=== PATIENT | female | born 1990 | race African-American/Black ===

== ENCOUNTER 2018-01-02 15:34 | Emergency (ER) | payer SELFPAY ==
[2018-01-02 15:46] VITALS: BMI 37.9
[2018-01-02] MEDS ORDERED: SODIUM CHLORIDE 1,000 ML IV STA ×2 (16:08→17:44)
--- NOTE | 2018-01-02 16:27 | PDOC ---
History of Present Illness - General Chief Complaint: Blood Sugar Problem Stated Complaint: G.HOME, HIGH BL SUGAR ABDOMINAL AND BACK PAIN Time Seen by Provider: 01/02/18 15:55 History Source: Care Provider Exam Limitations: Clinical Condition - History of Present Illness Initial Comments: 01/02/18 16:23 Patient is 27F with history of DM2, autism, and multiple other psychological issues is coming from [facility] [place] with complaint of high blood sugar and altered mental status. Paperwork from the MD at the facility states that she's been lethargic for the past few days complaining of back and abdominal pain. Blood sugar was reported at 547 with trace ketones. Patient is on quetiapine, clozapine, and aripraprazole. Patient follows basic commands, but does not complain of anything verbally. Patient is verbal at baseline. Past History - Past Medical History Allergies/Adverse Reactions: Allergies Allergy/AdvReac Type Severity Reaction Status Date / Time No Known Allergies Allergy Verified 01/02/18 15:40 Home Medications: Ambulatory Orders Chlorpromazine [Thorazine -] 50 mg PO BID 03/31/15 Famotidine [Pepcid] 40 mg PO DAILY 03/31/15 Imipramine HCl [Tofranil -] 50 mg PO HS 03/31/15 Magnesium Hydrox 2400MG/30Ml [Milk Of Magnesia] 400 mg PO DAILY 03/31/15 Metformin HCl 500 mg PO TID 03/31/15 Multivitamins [Tab-A-Vit -] 1 tab PO DAILY 03/31/15 Quetiapine Fumarate [Seroquel] 300 mg PO QID 03/31/15 Aripiprazole 20 mg PO BID 09/07/15 Docusate Sodium 100 mg PO TID 09/07/15 Lorazepam 2 mg PO BID 09/07/15 Anemia: Yes COPD: No Diabetes: Yes (TYPE 2) Hypercholesterolemia: Yes (TRIGLYCERIDE) Psychiatric Problems: No (autism,oppositional defiant disorder,mod M.R) 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) - Immunization History Immunization Up to Date: Yes - Suicide/Smoking/Psychosocial Hx Smoking History: Never smoked Have you smoked in the past 12 months: No Information on smoking cessation initiated: No Hx Alcohol Use: No Drug/Substance Use Hx: No Substance Use Type: None Review of Systems - Review of Systems Able to Perform ROS?: No (2/2 clinical condition) *Physical Exam - Vital Signs Last Vital Signs Temp Pulse Resp BP Pulse Ox 99.6 F 119 H 22 123/72 100 01/02/18 15:40 01/02/18 15:40 01/02/18 15:40 01/02/18 15:40 01/02/18 15:40 - Physical Exam Comments: 01/02/18 16:28 GENERAL: Awake, alert, non-verbal HEAD: No signs of trauma, normocephalic, atraumatic EYES: PERRLA, EOMI, sclera anicteric, conjunctiva clear ENT: Auricles normal inspection, hearing grossly normal, nares patent, oropharynx clear without exudates. Dry mucosa NECK: Normal ROM, supple, no lymphadenopathy, JVD, or masses LUNGS: Tachypnea, clear to auscultation bilaterally HEART: Regular rate and rhythm, normal S1 and S2, no murmurs, rubs or gallops, peripheral pulses normal and equal bilaterally. ABDOMEN: Soft, nontender, normoactive bowel sounds. No guarding, no rebound. No masses EXTREMITIES: Normal inspection, Normal range of motion, no edema. No clubbing or cyanosis. NEUROLOGICAL: Cranial nerves II through XII grossly intact. Normal speech, normal gait, no focal sensorimotor deficits SKIN: Warm, Dry, normal turgor, no rashes or lesions noted. ED Treatment Course - LABORATORY CBC & Chemistry Diagram: 01/02/18 16:45 01/02/18 16:45 - RADIOLOGY Radiology Studies Ordered: Category Date Time Status ABDOMEN & PELVIS CT WITH CONTR [CT] Stat CT Scan 01/02/18 16:[address] WITHOUT CONTRAST [CT] Stat CT Scan 01/02/18 16:09 Ordered CXRPORT [CHEST X-RAY PORTABLE*] [RAD] Stat Radiology 01/02/18 16:11 Ordered Medical Decision Making - Medical Decision Making 01/02/18 16:31 Patient is a 27F with history of DM2, multiple psych issues here today with AMS and abdominal pain. Vital signs notable for tachycardia, tachypnea, and oral temp of 99.8. Concerned patient is febrile, will do rectal temp. DDx includes, but is not limited to: DKA/HHS, UTI, PNA, appendicitis. Fingerstick glucose is 160. Broad workup initiated due to patient's inability to volunteer information , abnormal vital signs, and concern for DKA/HHS. 01/02/18 17:37 Rectal temp shows no fever. EKG shows sinus tachycardia with rate of 107. No st elevations/depressions. No significant t-wave abnormalities. Normal KS/QRS/QTc intervals. 01/02/18 17:41 Laboratory Tests 01/02/18 01/02/18 01/02/18 16:36 16:45 16:45 WBC 7.2 Hgb 11.4 Plt Count 246 INR 1.02 VBG pH Mixed VBG HCO3 Creatinine Creat Clearance w eGFR Random Glucose Troponin I Ur Leukocyte Esterase Urine WBC (Auto) Acetone, Qual Negative L 01/02/18 01/02/18 01/02/18 16:45 16:45 16:45 WBC Hgb Plt Count INR VBG pH 7.35 Mixed VBG HCO3 25.2 H Creatinine 0.8 Creat Clearance w eGFR > 60 Random Glucose 146 H Troponin I < 0.02 Ur Leukocyte Esterase 3+ H Urine WBC (Auto) 66 Acetone, Qual CBC normal. CMP reassuring. INR normal. Glucose only 146, no signs of acidosis on CMP. VBG was initially reported as 7.30 pH orally, 6.30 pH in computer. Patient was given ceftriaxone in anticipation of DKA secondary to UTI. Corrected vbg lab value shows no acidosis, pH of 7.35. Reassuring labs otherwise. Will do CT abd/pelvis and CT head still given patient's inability to advocate for self. Patient has good care at facility and would likely be able to take antibiotics PO. No CVA tenderness on my exam. Patient is still tachycardic, will give additional liter. Pending CXR/CT studies. 01/02/18 18:05 CXR shows apparent large bowel herniation through diaphragm on right side, may be artifact. CT abd/pelvis and CT head pending. Signed out to Dr Hart, pending CT scan results. 01/02/18 18:29 *DC/Admit/Observation/Transfer Diagnosis at time of Disposition: UTI (urinary tract infection) - Discharge Dispostion Condition at time of disposition: Stable - Referrals - Patient Instructions - Post Discharge Activity
--- NOTE | 2018-01-02 16:48 | PDOC ---
Attending Attestation - Resident Resident Name: Colin Verdugo - ED Attending Attestation I have performed the following: I have examined & evaluated the patient, The case was reviewed & discussed with the resident, I agree w/resident's findings & plan - HPI HPI: 01/02/18 16:43 27y/o F from [facility] with h/o autism, MDD, DM2 presents with increasing malaise, hyperglycemia over 1-2 days. no vomiting/diarrhea, no cough noted. c/o low back/abd pain, also mild headache. currently lying in stretcher very awake, resistant to some level of care, following some commands. - Physicial Exam PE: 01/02/18 16:46 rectal temp 99.8, tachy 120, o2 sat 100% alert, baseline mental delay, not warm to touch, speaking clearly and in no respiratory distress perrl, eomi. neck supple heart regular tachy, lungs clear moving all extremities, no deformity no rash other than two superficial areas of skin erosion around the perineum, stage 1 no edema - Critical Care Time Total Critical Care Time: 35 Critical Care Statement: The care of this patient involved high complexity decision making to prevent further life threatening deterioration of the patient 's condition and/or to evaluate & treat vital organ system(s) failure or risk of failure. - Medical Decision Making 01/02/18 16:48 27y/o F from [facility] with malaise, hyperglycemia, and c/o low back/abd pain. ? infectious (UTI, colitis) and/or metabolic, r/o dka. low suspicion for software design engineer involvement or primary cardiac process. sepsis protocol initiated given SIRS criteria, though no fever check DKA labs start IVF, ekg cxr, ct head, ctap reassess
[2018-01-02 16:56] LABS: BASO % 0.2 % (0-2.0); EOS % 1.3 % (0-4.5); HEMATOCRIT 34.9 % (32.4-45.2); HEMOGLOBIN 11.4 GM/dL (10.7-15.3); LYMPH % 16.5 % (8-40); MCH 27.9 pg (25.7-33.7); MCHC 32.7 g/dl (32.0-36.0); MEAN CELL VOLUME 85.2 fl (80-96); MEAN PLT VOLUME 6.5 fl (7.5-11.1); MONO % 10.9 % (3.8-10.2); NEUT % 71.1 % (42.8-82.8); PLATELET COUNT 246 K/MM3 (134-434); RDW 14.3 % (11.6-15.6); WHITE BLOOD COUNT 7.2 K/mm3 (4.0-10.0)
[2018-01-02 16:58] LABS: URINE APPEARANCE SLCLOUDY; URINE BILIRUBIN NEGATIVE (<2.0 mg/dL); URINE COLOR YELLOW; URINE GLUCOSE (UA) NEGATIVE (NEGATIVE); URINE KETONE NEGATIVE (NEGATIVE); URINE NITRITE NEGATIVE (NEGATIVE); URINE PROTEIN NEGATIVE (NEGATIVE); URINE UROBILINOGEN NEGATIVE mg/dL (0.2-1.0); VENOUS PC02 46.4 mmHg (38-52); VENOUS PO2 26.2 mmHg (28-48)
[2018-01-02 17:01] LABS: EPI CELLS RARE /HPF (FEW); URINE LEUK ESTERASE 3+ (NEGATIVE); URINE MUCUS RARE
[2018-01-02 17:15] LABS: VENOUS PH 7.35 (7.32-7.42)
[2018-01-02] MEDS ORDERED: CEFTRIAXONE 1,000 MG in DEXTROSE 5%-WATER - 50 ML IVPB ONE (17:19)
[2018-01-02 17:20] LABS: INR 1.02 (0.82-1.09); PROTHROMBIN TIME (PATIENT) 11.5 SEC (9.7-13.0); URINE AMPHETAMINES NEGATIVE ng/ml (CUTOFF=500); URINE BARBITURATES NEGATIVE ng/ml (CUTOFF=200)
[2018-01-02 17:21] LABS: COCAINE, UR NEGATIVE ng/ml (CUTOFF=300); METHADONE, UR NEGATIVE ng/ml (CUTOFF=300); OPIATES, URI NEGATIVE ng/ml (CUTOFF=300); PHENCYCLIDINE,URINE NEGATIVE ng/ml (CUTOFF=25); URINE BENZODIAZEPINES NEGATIVE ng/ml (CUTOFF=200)
[2018-01-02 17:23] VITALS: BP 105/76; PULSE 115; TEMP 99.8
[2018-01-02] MEDS ORDERED: CEFTRIAXONE 1 GM/50 ML BAG ONE (17:25)
[2018-01-02 17:35] LABS: ALBUMIN 3.6 g/dl (3.4-5.0); ANION GAP 8 (8-16); BILIRUBIN,TOTAL 0.3 mg/dL (0.2-1.0); BLOOD UREA NITROGEN 5 mg/dL (7-18); CALCIUM 8.4 mg/dL (8.5-10.1); CHLORIDE 104 mmol/L (98-107); CO2 26 mmol/L (21-32); CREATININE 0.8 mg/dL (0.55-1.02); GLUCOSE,RANDOM 146 mg/dL (74-106); POTASSIUM 4.1 mmol/L (3.5-5.1); SGOT/AST 16 U/L (15-37); SGPT/ALT 22 U/L (12-78); SODIUM 138 mmol/L (136-145); TOT PROT 7.4 g/dl (6.4-8.2)
[2018-01-02 17:37] LABS: ALK PHOS 96 U/L (45-117)
--- NOTE | 2018-01-02 19:54 | PDOC ---
*Physical Exam - Vital Signs Last Vital Signs Temp Pulse Resp BP Pulse Ox 99.8 F H 115 H 22 105/76 97 01/02/18 16:50 01/02/18 16:50 01/02/18 16:50 01/02/18 16:50 01/02/18 16:50 - Physical Exam Comments: 01/02/18 19:55 General Appearance: Nourished. No Apparent Distress HEENT: No Pharyngeal Erythema, Tonsillar Exudate, Tonsillar Erythema Neck: No Cervical Lymphadenopathy Respiratory/Chest: Lungs Clear, Normal Breath Sounds. No Crackles, Rales, Rhonchi, Wheezing Cardiovascular: Regular Rhythm, Regular Rate. No Murmur, Gallops, Rubs Gastrointestinal/Abdominal: Normal Bowel Sounds, Soft. No Guarding, Rebound, Tenderness Musculoskeletal: No CVA Tenderness Extremity: Normal Capillary Refill Integumentary: Normal Color, Dry, Warm ED Treatment Course - LABORATORY CBC & Chemistry Diagram: 01/02/18 16:45 01/02/18 16:45 - ADDITIONAL ORDERS Additional order review: Laboratory Results 01/02/18 01/02/18 01/02/18 16:45 16:45 16:45 PT with INR INR VBG pH 7.35 POC VBG pCO2 46.4 POC VBG pO2 26.2 L Mixed VBG HCO3 25.2 H Sodium Potassium Chloride Carbon Dioxide Anion Gap BUN Creatinine Creat Clearance w eGFR POC Glucometer Random Glucose Calcium Total Bilirubin AST ALT Alkaline Phosphatase Creatine Kinase Troponin I Total Protein Albumin Serum , Qual Negative Urine Color Urine Appearance Urine pH Ur Specific [place] Urine Protein Urine Glucose (UA) Urine Ketones Urine Blood Urine Nitrite Urine Bilirubin Urine Urobilinogen Ur Leukocyte Esterase Urine WBC (Auto) Urine RBC (Auto) Ur Epithelial Cells Urine Mucus Opiates Screen Negative Methadone Screen Negative Barbiturate Screen Negative Phencyclidine Screen Negative Ur Amphetamines Screen Negative MDMA (Ecstasy) Screen Negative Benzodiazepines Screen Negative Cocaine Screen Negative U Marijuana (THC) Screen Negative Acetone, Qual 01/02/18 01/02/18 01/02/18 16:45 16:45 16:45 PT with INR 11.50 INR 1.02 VBG pH POC VBG pCO2 POC VBG pO2 Mixed VBG HCO3 Sodium 138 Potassium 4.1 Chloride 104 Carbon Dioxide 26 Anion Gap 8 BUN 5 L Creatinine 0.8 Creat Clearance w eGFR > 60 POC Glucometer Random Glucose 146 H Calcium 8.4 L Total Bilirubin 0.3 AST 16 ALT 22 Alkaline Phosphatase 96 Creatine Kinase 57 Troponin I < 0.02 Total Protein 7.4 Albumin 3.6 Serum , Qual Urine Color Yellow Urine Appearance Slcloudy Urine pH 5.0 Ur Specific [place] 1.015 Urine Protein Negative Urine Glucose (UA) Negative Urine Ketones Negative Urine Blood Negative Urine Nitrite Negative Urine Bilirubin Negative Urine Urobilinogen Negative Ur Leukocyte Esterase 3+ H Urine WBC (Auto) 66 Urine RBC (Auto) 2 Ur Epithelial Cells Rare Urine Mucus Rare Opiates Screen Methadone Screen Barbiturate Screen Phencyclidine Screen Ur Amphetamines Screen MDMA (Ecstasy) Screen Benzodiazepines Screen Cocaine Screen U Marijuana (THC) Screen Acetone, Qual 01/02/18 01/02/18 16:36 16:21 PT with INR INR VBG pH POC VBG pCO2 POC VBG pO2 Mixed VBG HCO3 Sodium Potassium Chloride Carbon Dioxide Anion Gap BUN Creatinine Creat Clearance w eGFR POC Glucometer [id number] Random Glucose Calcium Total Bilirubin AST ALT Alkaline Phosphatase Creatine Kinase Troponin I Total Protein Albumin Serum , Qual Urine Color Urine Appearance Urine pH Ur Specific [place] Urine Protein Urine Glucose (UA) Urine Ketones Urine Blood Urine Nitrite Urine Bilirubin Urine Urobilinogen Ur Leukocyte Esterase Urine WBC (Auto) Urine RBC (Auto) Ur Epithelial Cells Urine Mucus Opiates Screen Methadone Screen Barbiturate Screen Phencyclidine Screen Ur Amphetamines Screen MDMA (Ecstasy) Screen Benzodiazepines Screen Cocaine Screen U Marijuana (THC) Screen Acetone, Qual Negative L 01/02/18 01/02/18 16:45 16:21 RBC 4.10 MCV 85.2 MCHC 32.7 RDW 14.3 MPV 6.5 L Neutrophils % 71.1 Lymphocytes % 16.5 Monocytes % 10.9 H Eosinophils % 1.3 Basophils % 0.2 POC Glucometer [phone] - Medications Given in the ED: ED Medications Discontinued Medications Generic Name Dose Route Start Last Admin Trade Name Freq PRN Reason Stop Dose Admin Sodium Chloride 1,000 mls @ 1,000 mls/hr 01/02/18 16:08 01/02/18 16:10 Normal Saline - IV 01/02/18 17:07 1,000 mls/hr .Q1H STA Administration Ceftriaxone Sodium 1,000 mg/ 50 mls @ 100 mls/hr 01/02/18 17:19 05/26/18 17: 20 Dextrose IVPB 01/02/18 17:48 100 mls/hr ONCE ONE Administration Sodium Chloride 1,000 mls @ 1,000 mls/hr 01/02/18 17:44 01/02/18 17:45 Normal Saline - IV 01/02/18 18:43 1,000 mls/hr ASDIR STA Administration Progress Note - Progress Note Progress Note: The patient is a 27 year old female who presents for evaluation of behavioral disturbance. Patient's UA demonstrates an UTI and has received ceftriaxone. The patient is pending a CT head and abdomen pelvis. Likely discharge home should imaging be negative. Medical Decision Making - Medical Decision Making 01/02/18 20:17 CT head and abdomen/pelvis were unremarkable as preliminarily read by our can conveyor feeder radiologist. We are comfortable discharging the patient home at this time. We discussed the case with the receiving physician at the patient's nursing home facility who is agreeable with our plan. *DC/Admit/Observation/Transfer Diagnosis at time of Disposition: UTI (urinary tract infection) Qualifiers: Urinary tract infection type: site unspecified Hematuria presence: without hematuria Qualified Code(s): N39.0 - Urinary tract infection, site not specified - Discharge Dispostion Condition at time of disposition: Stable - Prescriptions Prescriptions: Sulfamethoxazole/Trimethoprim [Bactrim Ds -] 1 tab PO BID #14 tablet - Referrals - Patient Instructions Printed Discharge Instructions: DI for Urinary Tract Infection (UTI) Additional Instructions: Please return to the ER if you experience concerning or worsening symptoms including worsening pain, fevers, or vomiting. Your lab results show that you have a urinary tract infection. We have sent a prescription to your pharmacy for antibiotics that you should take twice a day for 7 days. It is important that you call to schedule a follow up appointment with your primary care provider within 2-3 days to discuss your ER visit and further management of your symptoms. - Post Discharge Activity
--- NOTE | 2018-01-03 10:09 | EKG ---
Test Reason : Blood Pressure : / mmHG Vent. Rate : 107 BPM Atrial Rate : 107 BPM P-R Int : 132 ms QRS Dur : 100 ms QT Int : 342 ms P-R-T Axes : 061 016 057 degrees QTc Int : 456 ms SINUS TACHYCARDIA POSSIBLE LATERAL INFARCT , AGE UNDETERMINED ABNORMAL ECG NO PREVIOUS ECGS AVAILABLE Confirmed by DILSHAD GREGORY MD ([id number]) on 01/03/2018 10:09:07 AM Referred By: Confirmed By:DILSHAD GREGORY MD
== END 2018-01-02 20:57 ==
LOC: JER 15:34
PROC: 3E0337Z Introduction of Electrolytic and Water Balance Substance into Peripheral Vein, Percutaneous Approach (ICD-10-PCS; principal; 2018-01-02)
PROC: 3E03329 Introduction of Other Anti-infective into Peripheral Vein, Percutaneous Approach (ICD-10-PCS; 2018-01-02)
DX: N39.0 Urinary tract infection, site not specified (principal); F84.0 Autistic disorder; F71 Moderate intellectual disabilities; F91.3 Oppositional defiant disorder
CPT/HCPCS: 36415; 70450-TC; 71045-TC-FY; 74177-TC; 80053; 80307; 81003; 81015; 82009; 82550; 82803; 82962; 84484; 84703; 85025; 85610; 87040; 87086; 87186; 93005; 93010; 96361; 96365; 99283-25; J7030